=== PATIENT | female | born 1955 | race Caucasian/White ===

== ENCOUNTER → 2017-03-13 | Outpatient (CLI) | payer OTHER ==
[~2017-03-13] MED LIST: HYDROCODONE-AP1 EAC6 PO; IBUPROFEN 800800 M1 PO; MEDROL DOSPAK21 TA1 PO; PERCOCET PO; ROBAXIN 750 MG750 M1 PO; ZESTORETIC 20-1 EACH PO; ZOFRAN ODT4 MG PO
--- NOTE | 2017-03-21 08:27 | SLEEP ---
[address] [address] SLEEP STUDY REPORT Name: DEO CABRERA Room: [facility]#: [id number] Admission: 03/13/17 Attend Phys: Iraj Adames, Discharge: Date of : 59 Report #: [id number] THIS REPORT FOR: //name// CC: Iraj Adames This study has been reviewed in its entirety by a board certified sleep specialist DATE OF SERVICE: 03/20/2017 TYPE OF STUDY: Home sleep apnea test. REFERRING PHYSICIAN: SYLVIE Martinez INDICATION: Daytime sleepiness with [place] sleepiness score of 19. This was a home sleep apnea test with a total recording time 466.8 minutes. It was noted the patient slept on the right position the whole night. During the study, the patient had 1 central apnea, 181 obstructive apneas and 90 hypopneas with overall apnea-hypopnea index of 35 per hour. OXIMETRY DISTRIBUTION: The average O2 saturation during the study was 93%; however, it was noted that patient had episodes of desaturation to a azam of 72%. The patient spent 32.6 minutes with O2 saturation less than 90% during the study. HEART RATE: The average heart rate was 73 per minute and snoring was recorded. IMPRESSION: The above home sleep apnea test documents the presence of severe obstructive sleep apnea with apnea-hypopnea index of 35 per hour and oxygen saturation to a azam of 72%. RECOMMENDATIONS: 1. With hypersomnia and severe obstructive sleep apnea, would recommend PAP therapy. If there is no contraindication, auto CPAP at a pressure range of 4-20 cm of water with a close clinical followup and data download can be tried. 2. If the patient is not a candidate for auto CPAP, would recommend sending the patient to a sleep lab for an attended CPAP titration study. 3. Recommend maintaining [place] [address] SLEEP STUDY REPORT Name: DEO CABRERA Room: [facility]#: [id number] Admission: 03/13/17 Attend Phys: Iraj Adames, Discharge: Date of : 59 Report #: [id number] 4. Recommend avoiding sedatives, hypnotics and alcohol close to bedtime. 5. Avoid driving or operating machinery while drowsy. <ELECTRONICALLY SIGNED> By: Mehul Hathaway MD 03/21/17 0827 1046 [id number] Garcia MD /nt
--- NOTE | 2017-03-22 15:16 | SLEEP ---
[address] [address] SLEEP STUDY REPORT Name: DEBORAHDEO Renetta Room: [facility]#: [id number] Admission: 03/13/17 Attend Phys: Iraj Adames, Discharge: Date of : 59 Report #: [id number] THIS REPORT FOR: //name// CC: Iraj Diaz This study has been reviewed in its entirety by a board certified sleep specialist DATE OF SERVICE: 03/13/2017 ATTENDING PHYSICIAN: Iraj Adames DO She is 61 years old. Home sleep study on a 61-year-old female with loud snoring, restless sleep, difficulty staying asleep. Overnight home sleep test is indicated. The patient had 1 central apnea. She had 181 obstructive apneas and 90 hypopneas. Total number of events was 272. Apnea-hypopnea index was 35 events per hour. The patient had a total time recording of 7 hours and 40 minutes. The patient had mild O2 desaturation less than 85% at 1.6% of the time. Her average O2 sat was 93%. She had some mild snoring which was 8.2 seconds and 9.4% of snoring was noted. Heart rate stayed between 73 and 117. IMPRESSION: Abnormalities suggest moderate to moderately severe obstructive sleep apnea, mild O2 desaturation was noted. PLAN: Consider either a repeat full sleep study on an in-house basis. If not, autotitrating CPAP from 5-15 cm may be helpful to this patient. A level of 12-15 cm may be preferred by her with her moderately severe disease. Full face mask should be considered also. No complications to the above procedure. <ELECTRONICALLY SIGNED> By: Mehul Hathaway MD 03/22/17 1516 1028 [id number] Hathaway MD /nt
== END ==
LOC: M.SLEEPLAB 08:52
DX: G47.33 Obstructive sleep apnea (adult) (pediatric) (principal)

== ENCOUNTER → 2017-10-22 | Outpatient (CLI) | payer OTHER ==
[2017-10-22 07:16] LABS: ABSOLUTE BASOPHILS 0.1 thou/uL (0.0-0.2); ABSOLUTE EOSINOPHILS 0.1 thou/uL (0.0-0.7); ABSOLUTE LYMPHOCYTES 1.7 thou/uL (0.8-5.3); ABSOLUTE MONOCYTES 0.3 thou/uL (0.0-1.2); ABSOLUTE NEUTROPHILS 2.3 thou/uL (1.6-8.1); BASOPHILS 1.1 %; EOSINOPHILS 2.1 %; HEMATOCRIT 42.8 % (37.0-47.0); HEMOGLOBIN 14.4 gm/dL (12.0-15.0); LYMPHOCYTES 38.4 %; MCH 31.2 pg (26.0-34.0); MCHC 33.7 g/dL (28.0-37.0); MCV 92.5 fL (80.0-100.0); MONOCYTES 6.9 %; NUCLEATED RBCS 0 /100WBC; PLATELET COUNT* 179 thou/uL (150-400); POLYS 51.5 %; RBC 4.63 mil/uL (4.20-5.00); RDW-CV 13.1 % (10.5-14.5); WBC 4.4 thou/uL (4.0-11.0)
[2017-10-22 07:29] LABS: ALBUMIN 3.8 g/dL (3.4-5.0); ALKALINE PHOSPHATASE 58 U/L (46-116); ANION GAP 7 mmol/L (7-16); BUN 14 mg/dL (7-18); CALCIUM 9.2 mg/dL (8.5-10.1); CHLORIDE 102 mmol/L (98-107); CHOLESTEROL 300 mg/dL (<200); CO2 29 mmol/L (21-32); CREATININE 0.9 mg/dL (0.6-1.3); GLUCOSE 115 mg/dL (70-99); HDL CHOLESTEROL 42 mg/dL (>40); LDL CHOLESTEROL 198 mg/dL (<100); POTASSIUM 4.2 mmol/L (3.5-5.1); SGOT 19 U/L (15-37); SGPT 36 U/L (30-65); SODIUM 138 mmol/L (136-145); TC:HDL 7.1 Ratio (Not establshd); TOTAL BILIRUBIN 0.5 mg/dL (<0.1-1.0); TOTAL PROTEIN 7.3 g/dL (6.4-8.2); TRIGLYCERIDE 300 mg/dL (<150); VLDL 60 mg/dL (<40)
[2017-10-22 07:35] LABS: SERUM ASSESSMENT Clear
[2017-10-27 09:54] LABS: GLYCOHEMOGLOBIN (HGB A1C) 5.4
== END ==
LOC: M.LAB 10:42
PROVIDERS: Family Medicine
DX: I10 Essential (primary) hypertension (principal); R53.83 Other fatigue; R73.09 Other abnormal glucose; E78.00 Pure hypercholesterolemia, unspecified; M81.0 Age-related osteoporosis without current pathological fracture

== ENCOUNTER → 2017-12-19 | Outpatient (CLI) | payer OTHER ==
--- NOTE | 2017-12-19 13:49 | EXE ---
[place] [address] STRESS ECHOCARDIOGRAM Name: DEO CABRERA Room: [facility]#: [id number] Admission: 12/19/17 Attend Phys: Dago Vee MD Discharge: Date of : 59 Date of Service: 12/19/17 1349 Report #: [id number] THIS REPORT FOR: //name// APPROVED REPORT Study performed: 12/19/2017 10:56:52 Exam: Stress Echocardiogram Indication: Palpitations Patient Location: Out-Patient Stress Nurse: Lesley Ruano RN Supervising Physician: Onofre Bingham MD Status: routine Ht: 5 ft 2 in HR: 69 bpm BP: 152/97 mmHg Rhythm: NSR Medical History Medications: Metoprolol, Lisinopril Cardiac Risk Factors: HTN, FHX of CAD Procedure The patient underwent an Exercise Stress Test using the Ryley Protocol. Blood pressure, heart rate, and EKG were monitored. An Echocardiogram was performed by it technician in four stages in quad fashion. At peak stress, four selected images were obtained and placed side by side with resting images for comparison. Stress Test Details Stress Test: Exercise stress testing was performed using a Ryley protocol. HR Resting HR: 69 bpm Max Heart Rate (APMHR): 160 bpm Max HR Achieved: 171 bpm Target HR (85% APMHR): 136 bpm % of APMHR: 106 Recovery HR: 99 bpm HR response to stress: Normal HR response to stress BP Resting BP: 152/97 mmHg Max BP: 202/106 mmHg Recovery BP: 147/83 [place] [address] STRESS ECHOCARDIOGRAM Name: DEO CABRERA Room: [facility]#: [id number] Admission: 12/19/17 Attend Phys: Dago Vee MD Discharge: Date of : 59 Date of Service: 12/19/17 1349 Report #: [id number] Resting ECG: normal tracing Stress EC/2 - [address] depression at peak exercise and 1/2 mm during late post exercise phase Clinical Reason for Termination: Maximal effort Exercise duration: 9 min 25 sec Highest Stage Achieved: Stage 4: 4.2 mph at 16% grade. Exercise capacity: 10.82 METs Pre-Stress Echo The resting Echocardiogram showed normal left ventricular contractility with an estimated Ejection Fraction of about 55-60%. Normal wall motion in all segments on baseline images. Post-Stress Echo The stress Echocardiogram showed normal left ventricular contractility with an estimated Ejection Fraction of about >70%. Normal augmentation of wall motion in all segments on post stress images. Conclusion Clinical Response: Non-ischemic Exercise Capacity: Superior Stress ECG Response: Equivocal Stress Echo Images: Non-ischemic Other Information Study Quality: Good <ELECTRONICALLY SIGNED> By: Onofre Bingham MD, FACC 12/19/179 48 48 Onofre Bingham MD, FACC /INF
== END ==
LOC: M.CRD 10:23
DX: R00.2 Palpitations (principal)

== ENCOUNTER 2018-03-19 11:14 | Emergency (ER) | payer OTHER ==
[~2018-03-19] VITALS: Ht 157.5 cm; Wt 68.0 kg
[2018-03-19] MEDS ORDERED: LOPRESSOR25 PO (11:22)
[2018-03-19 11:53] LABS: INFLUENZA A ANTIGEN None Detected (None Detect); INFLUENZA B ANTIGEN None Detected (None Detect)
[2018-03-19] MEDS ORDERED: ACETAMINOPHEN-1 EAC1 PO (11:59)
[2018-03-19] MEDS ORDERED: MEDROLDOSEPACK PO (11:59)
[2018-03-19 12:10] VITALS: BP 146/76
== END 2018-03-19 12:11 | disposition home or self-care (01) ==
LOC: M.ERS 11:14
PROVIDERS: Physician Assistant
DX: J02.9 Acute pharyngitis, unspecified (principal); I10 Essential (primary) hypertension; E78.00 Pure hypercholesterolemia, unspecified; M19.90 Unspecified osteoarthritis, unspecified site; Z98.890 Other specified postprocedural states; Z88.6 Allergy status to analgesic agent

== ENCOUNTER → 2018-06-25 | Outpatient (CLI) | payer OTHER ==
[~2018-06-25] MED LIST changes: +ACETAMINOPHEN-1 EAC1 PO; +LOPRESSOR25 PO; +MEDROLDOSEPACK PO
== END ==
LOC: M.MRI 08:29
DX: M51.36 Other intervertebral disc degeneration, lumbar region (principal); N88.8 Other specified noninflammatory disorders of cervix uteri

== ENCOUNTER → 2019-04-14 | Outpatient (CLI) | payer OTHER | LOC: M.CT 08:00 | DX: Z13.6 Encounter for screening for cardiovascular disorders (principal); I25.10 Atherosclerotic heart disease of native coronary artery without angina pectoris ==

== ENCOUNTER → 2019-06-09 | Outpatient (CLI) | payer OTHER | LOC: M.LAB 08:00 | DX: Z11.59 Encounter for screening for other viral diseases (principal); Z20.828 Contact with and (suspected) exposure to other viral communicable diseases ==

== ENCOUNTER → 2019-07-11 | Outpatient (CLI) | payer OTHER ==
[2019-07-11 09:55] LABS: ABSOLUTE BASOPHILS 0.1 thou/uL (0.0-0.2); ABSOLUTE EOSINOPHILS 0.1 thou/uL (0.0-0.7); ABSOLUTE LYMPHOCYTES 1.8 thou/uL (0.8-5.3); ABSOLUTE MONOCYTES 0.2 thou/uL (0.0-1.2); ABSOLUTE NEUTROPHILS 2.8 thou/uL (1.6-8.1); BASOPHILS 1.1 %; EOSINOPHILS 1.9 %; HEMATOCRIT 43.7 % (37.0-47.0); LYMPHOCYTES 35.9 %; MCH 31.3 pg (26.0-34.0); MCHC 34.2 g/dL (28.0-37.0); MCV 91.6 fL (80.0-100.0); MPV 8.6 fl. (7.2-11.1); NUCLEATED RBCS 0 /100WBC; PLATELET COUNT* 204 thou/uL (150-400); POLYS 56.1 %; RBC 4.78 mil/uL (4.20-5.00); RDW-CV 12.9 % (10.5-14.5); URINE BILIRUBIN NEGATIVE (Negative); URINE BLOOD NEGATIVE (Negative); URINE CLARITY CLEAR; URINE COLOR YELLOW; URINE GLUCOSE-RANDOM NEGATIVE (Negative); URINE KETONES NEGATIVE (Negative); URINE LEUKOCYTES NEGATIVE (Negative); URINE NITRITE NEGATIVE (Negative); URINE PROTEIN NEGATIVE (Negative); URINE UROBILINOGEN 0.2 E.U./dl (0.2-1.0); WBC 4.9 thou/uL (4.0-11.0)
[2019-07-11 10:03] LABS: ALBUMIN 4.1 g/dL (3.4-5.0); CALCIUM 9.1 mg/dL (8.5-10.1); POTASSIUM 4.4 mmol/L (3.5-5.1); TOTAL BILIRUBIN 0.5 mg/dL (<0.1-1.0); TOTAL PROTEIN 7.4 g/dL (6.4-8.2)
[2019-07-12 02:07] LABS: GLYCOHEMOGLOBIN (HGB A1C) 5.7 % (4.8-5.6)
[2019-07-14 16:39] LABS: CHOLESTEROL 330 mg/dL (<200); HDL CHOLESTEROL 44 mg/dL (>40); TC:HDL 7.5 Ratio (Not establshd); TRIGLYCERIDE 500 mg/dL (<150); VLDL 100 mg/dL (<40)
[2019-07-14 16:42] LABS: SERUM ASSESSMENT Moderate Lipemia
== END ==
LOC: M.LAB 09:07
DX: E78.5 Hyperlipidemia, unspecified (principal); R53.81 Other malaise; R53.83 Other fatigue; Z00.01 Encounter for general adult medical examination with abnormal findings

== ENCOUNTER 2019-10-28 14:39 | Emergency (ER) | payer OTHER ==
[~2019-10-28] VITALS: Ht 157.5 cm; Wt 73.5 kg
[2019-10-28 15:15] LABS: INFLUENZA A ANTIGEN Negative (Negative); INFLUENZA B ANTIGEN Negative (Negative)
[2019-10-28] MEDS ORDERED: ZPAK PO (15:17)
[2019-10-28 15:23] VITALS: BP 155/94
== END 2019-10-28 15:24 | disposition home or self-care (01) ==
LOC: M.ERS 14:39
PROVIDERS: Personal Emergency Response Attendant
DX: J98.9 Respiratory disorder, unspecified (principal); Z20.828 Contact with and (suspected) exposure to other viral communicable diseases; B34.9 Viral infection, unspecified; I10 Essential (primary) hypertension; E78.00 Pure hypercholesterolemia, unspecified; M19.90 Unspecified osteoarthritis, unspecified site; Z88.5 Allergy status to narcotic agent; Z79.899 Other long term (current) drug therapy; Z98.890 Other specified postprocedural states

== ENCOUNTER 2020-06-01 10:00 | Emergency (ER) | payer OTHER ==
[~2020-06-01] VITALS: Ht 157.5 cm; Wt 77.1 kg
[~2020-06-01 10:00] MED LIST changes: +ZPAK PO
[2020-06-01 10:52] LABS: INFLUENZA A ANTIGEN Negative (Negative); INFLUENZA B ANTIGEN Negative (Negative)
[2020-06-01 11:00] VITALS: BP 155/88
== END 2020-06-01 11:00 | disposition home or self-care (01) ==
LOC: M.ERS 10:00
PROVIDERS: Physician Assistant
DX: R05 Cough (principal); R09.81 Nasal congestion; Z20.822 Contact with and (suspected) exposure to COVID-19; I10 Essential (primary) hypertension; E78.00 Pure hypercholesterolemia, unspecified; G43.909 Migraine, unspecified, not intractable, without status migrainosus; M19.90 Unspecified osteoarthritis, unspecified site; Z98.890 Other specified postprocedural states; Z88.5 Allergy status to narcotic agent

== ENCOUNTER → 2021-01-17 | Outpatient (CLI) | payer OTHER | LOC: M.ULTRA 11:33 | PROVIDERS: ATTEND Nurse Practitioner Family | DX: R19.09 Other intra-abdominal and pelvic swelling, mass and lump (principal) ==

== ENCOUNTER → 2021-02-04 | Outpatient (CLI) | payer OTHER ==
[2021-02-04 11:49] LABS: URINE BILIRUBIN NEGATIVE (Negative); URINE BLOOD NEGATIVE (Negative); URINE CLARITY CLEAR; URINE COLOR YELLOW; URINE GLUCOSE-RANDOM NEGATIVE (Negative); URINE KETONES NEGATIVE (Negative); URINE LEUKOCYTES-REFLEX NEGATIVE (Negative); URINE NITRITE-REFLEX NEGATIVE (Negative); URINE PROTEIN NEGATIVE (Negative); URINE SPECIFIC GRAVITY 1.015 (1.005-1.030); URINE UROBILINOGEN 0.2 E.U./dl (0.2-1.0)
[2021-02-04 11:50] LABS: ABSOLUTE EOSINOPHILS 0.1 thou/uL (0.0-0.7); ABSOLUTE LYMPHOCYTES 1.8 thou/uL (0.8-5.3); ABSOLUTE MONOCYTES 0.3 thou/uL (0.0-1.2); ABSOLUTE NEUTROPHILS 2.6 thou/uL (1.6-8.1); BASOPHILS 0.9 %; EOSINOPHILS 1.6 %; HEMATOCRIT 42.7 % (37.0-47.0); HEMOGLOBIN 14.3 gm/dL (12.0-15.0); LYMPHOCYTES 37.1 %; MCH 30.5 pg (26.0-34.0); MCHC 33.5 g/dL (28.0-37.0); MONOCYTES 6.5 %; MPV 7.8 fl. (7.2-11.1); NUCLEATED RBCS 0 /100WBC; PLATELET COUNT* 211 thou/uL (150-400); POLYS 53.9 %; RBC 4.69 mil/uL (4.20-5.00); RDW-CV 12.9 % (10.5-14.5); WBC 4.7 thou/uL (4.0-11.0)
[2021-02-04 12:01] LABS: ALBUMIN 3.9 g/dL (3.4-5.0); ALKALINE PHOSPHATASE 81 U/L (46-116); ANION GAP 8 mmol/L (7-16); BUN 11 mg/dL (7-18); CALCIUM 9.4 mg/dL (8.5-10.1); CHLORIDE 99 mmol/L (98-107); CHOLESTEROL 311 mg/dL (<200); CO2 29 mmol/L (21-32); CREATININE 0.9 mg/dL (0.6-1.3); GLUCOSE 113 mg/dL (70-99); HDL CHOLESTEROL 57 mg/dL (>40); LDL CHOLESTEROL 213 mg/dL (<100); POTASSIUM 3.7 mmol/L (3.5-5.1); SGOT 19 U/L (15-37); SGPT 39 U/L (30-65); SODIUM 136 mmol/L (136-145); TC:HDL 5.5 Ratio (Not establshd); TOTAL BILIRUBIN 0.5 mg/dL (<0.1-1.0); TOTAL PROTEIN 7.6 g/dL (6.4-8.2); TRIGLYCERIDE 209 mg/dL (<150); URIC ACID* 6.5 mg/dL (2.6-7.2); VLDL 42 mg/dL (<40)
[2021-02-04 12:02] LABS: SERUM ASSESSMENT Clear
[2021-02-04 12:56] LABS: ESR (SEDRATE) 16 mm/hr (0-30)
[2021-02-05 07:08] LABS: GLYCOHEMOGLOBIN (HGB A1C) 5.9 % (4.8-5.6)
[2021-02-06 21:06] LABS: ANA INTERPRETATION Negative (())
[2021-02-07 15:08] LABS: CMV IgM Abs <30.0 AU/mL (0.0-29.9)
[2021-02-08 15:08] LABS: B.burgdorf.IgG Negative (()); B.burgdorf.IgM Negative (())
== END ==
LOC: M.LAB 09:16
PROVIDERS: ATTEND Nurse Practitioner Family
DX: R53.83 Other fatigue (principal); I10 Essential (primary) hypertension; R59.0 Localized enlarged lymph nodes; M21.941 Unspecified acquired deformity of hand, right hand; M21.942 Unspecified acquired deformity of hand, left hand; M79.89 Other specified soft tissue disorders

== ENCOUNTER → 2021-03-16 | Outpatient (CLI) | payer OTHER | LOC: M.LAB 08:38 | PROVIDERS: ATTEND Surgery | DX: Z01.812 Encounter for preprocedural laboratory examination (principal); Z20.822 Contact with and (suspected) exposure to COVID-19 ==

== ENCOUNTER → 2021-04-05 | Outpatient (CLI) | payer OTHER ==
[2021-04-05 13:32] LABS: CREATININE 0.8 mg/dL (0.6-1.3)
== END ==
LOC: M.LAB 13:00 → M.CT 14:00
PROVIDERS: ATTEND Surgery
DX: C77.4 Secondary and unspecified malignant neoplasm of inguinal and lower limb lymph nodes (principal); M48.04 Spinal stenosis, thoracic region; R59.0 Localized enlarged lymph nodes

== ENCOUNTER → 2021-04-17 | Outpatient (CLI) | payer OTHER | LOC: M.RAD 11:52 | PROVIDERS: ATTEND Radiology Radiation Oncology | DX: C77.4 Secondary and unspecified malignant neoplasm of inguinal and lower limb lymph nodes (principal); N63.21 Unspecified lump in the left breast, upper outer quadrant ==